=== PATIENT | male | born 1965 | race Caucasian/White ===

== ENCOUNTER 2019-09-14 00:11 | Outpatient (CLI) | payer BC, OTHER, SELFPAY ==
[2019-09-14 19:22] LABS: SARS-CoV-2 RNA PCR Negative
== END 2019-09-14 00:12 | disposition home or self-care (01) ==
LOC: ANHCOVIDDT 00:13
PROVIDERS: Visit Provider Internal Medicine Gastroenterology
DX: Z01.812 Encounter for preprocedural laboratory examination (principal); Z11.59 Encounter for screening for other viral diseases
CPT/HCPCS: 87635; C9803; U0003

== ENCOUNTER 2019-09-17 02:02 | Day surgery (SDC) | payer BC, OTHER, SELFPAY ==
[2019-09-11 13:45] VITALS: BMI 32.8
[2019-09-17 08:51] VITALS: BP 124/84; PULSE 79; RESP 16; TEMP 36.8; O2SAT 98; BMI 33.7
--- NOTE | 2019-09-17 08:51 | WPDANESEPPF ---
Anes - Initial Pre Proc Eval Procedure: Operation Date: 09/17/19 10:00 Proposed Procedures p Esophagogastroduodenoscopy & Screening Colonoscopy - Nikhil Sena MD Date/Time: 09/17/19 08:51 Surgeon: Nikhil Sena MD Pre Op Diagnosis: Reflux/ Neoplasm Screening Patient Data Age: 53 Gender: M Height: 6 ft Weight: 110 kg Allergies Allergy/AdvReac Type Severity Reaction Status Date / Time No Known Allergies Allergy Verified 09/17/19 08:50 Home Medications Medication Instructions Recorded Confirmed Type ascorbic acid (vitamin C) [Vitamin 1 g PO DAILY 09/11/19 09/11/19 History C] atorvastatin 20 mg PO DAILY 09/11/19 09/11/19 History ergocalciferol (vitamin D2) 1,250 mcg PO DAILY 09/11/19 09/11/19 History omeprazole 20 mg PO DAILY 09/11/19 09/11/19 History Patient hx anesthesia problems: none Family hx anesthesia problems: none PMFSH Past Medical History Medical History Hyperlipidemia CANDY (obstructive sleep apnea) Family History Family History Mother Hypertension Family history of heart disease in male family member before age 55 Sibling Family history of diabetes mellitus in first degree relative Social History Social History Smoking status: Never smoker Alcohol intake: current Anes - Eval Final PreProcedure Day of Procedure 09/17/19 08:51 Patient weight: obese Heart: regular rate and rhythm Lungs: clear to auscultation Airway: Mallampati scale class II Neurological: alert and oriented Last oral intake: >/= 8 hours ASA classification: III Emergent: no Anesthetic plan: proceed Anesthesia type and monitoring: general GIVS and standard monitoring Informed Consent: The patient's anesthetic plan and its attendant risks and benefits were discussed with the patient/family/POA. Questions were solicited and answers provided to the satisfaction of the patient/family/POA.
--- NOTE | 2019-09-17 08:58 | PM.HPGS ---
History of Present Illness History of Present Illness Consent: Risks, benefits, and alternatives have been discussed and questions answered. Patient agrees to proceed with procedure. Chief complaint: Reflux/ Neoplasm Screening Narrative: Brendan Graham is a 53 year old W male referred for gastroscopy and colonoscopy. Patient has chronic gastroesophageal reflux disease symptoms are controlled fairly well with Prilosec but has some breakthrough symptoms. Patient undergoing his 1st screening colonoscopy. His father was diagnosed with colon cancer in his late 80s. Patient is asymptomatic no change in bowel pattern no blood in stool. COUNT INCLUDES THE [facility] Past Medical History Medical History Hyperlipidemia CANDY (obstructive sleep apnea) Family History Family History Mother Hypertension Family history of heart disease in male family member before age 55 Sibling Family history of diabetes mellitus in first degree relative Social History Social History Smoking status: Never smoker Alcohol intake: current Meds Home Medications and Allergies Home Medications Medication Instructions Recorded Confirmed Type ascorbic acid (vitamin C) [Vitamin 1 g PO DAILY 09/11/19 09/11/19 History C] atorvastatin 20 mg PO DAILY 09/11/19 09/11/19 History ergocalciferol (vitamin D2) 1,250 mcg PO DAILY 09/11/19 09/11/19 History omeprazole 20 mg PO DAILY 09/11/19 09/11/19 History Allergies Allergy/AdvReac Type Severity Reaction Status Date / Time No Known Allergies Allergy Verified 09/17/19 08:50 Vital Signs Vital Signs - 24 hr 09/17/19 08:51 Temperature 36.8 C Pulse Rate 79 Respiratory Rate 16 Blood Pressure 124/84 Pulse Oximetry 98 Exam Const: Orientation/consciousness: patient oriented x3 Resp: Auscultation: clear to auscultation bilaterally Cardio: Rate: regular rate Rhythm: regular rhythm Heart sounds: no murmurs GI: GI Palp: Yes Soft to palpation, No Tenderness to palpation present (GI), Yes No hepatosplenomegaly present and No Palpable mass present Auscultation: normal bowel sounds Neuro: General: patient oriented x3 and no focal motor deficits Extrem: General: no pedal edema Assessment and Plan Additional Plan Gastroscopy for evaluation of chronic gastroesophageal reflux disease and screening colonoscopy secondary family history of colon cancer in his father
[2019-09-17] MEDS: LACTATED RINGERS 1,000 ML 150 ML IV CONT (09:08)
[2019-09-17 10:52] VITALS: BP 112/70; PULSE 71; RESP 16; O2SAT 94
[2019-09-17 11:02] VITALS: BP 114/75; PULSE 70; RESP 20; O2SAT 98
[2019-09-17 11:12] VITALS: BP 117/69; PULSE 74; RESP 22; O2SAT 99
== END 2019-09-17 11:26 | disposition home or self-care (01) ==
PROVIDERS: Visit Provider Internal Medicine Gastroenterology
PROC: 0DJ08ZZ Inspection of Upper Intestinal Tract, Via Natural or Artificial Opening Endoscopic (ICD-10-PCS; CPT 43235; principal; 2019-09-17 10:00)
DX: Z12.11 Encounter for screening for malignant neoplasm of colon (principal); Z80.0 Family history of malignant neoplasm of digestive organs; K21.0 Gastro-esophageal reflux disease with esophagitis; K44.9 Diaphragmatic hernia without obstruction or gangrene; K31.7 Polyp of stomach and duodenum; E78.5 Hyperlipidemia, unspecified; G47.33 Obstructive sleep apnea (adult) (pediatric); E66.9 Obesity, unspecified; Z68.33 Body mass index [BMI] 33.0-33.9, adult; Z79.899 Other long term (current) drug therapy
CPT/HCPCS: 43239; G0105; 87635; 88305; C9803; J2704; J7120; U0003